=== PATIENT | female | born 1975 | race Hispanic/Latino ===

== ENCOUNTER 2022-07-03 11:36 | Emergency (ER) | payer SELFPAY ==
--- NOTE | 2022-07-03 12:30 | RAD REPORT ---
EXAM DESCRIPTION: CT - C Spine Wo Con - 07/03/2022 12:14 pm CLINICAL HISTORY: nek pain, radicular pain COMPARISON: No comparisons TECHNIQUE: CT Scan was obtained of the cervical spine without contrast. Reformats were provided in t he sagittal and coronal plane. FINDINGS: No acute fracture of the cervical spine. Trace anterolisthesis of C3 on C4 and C4 on C5 li kiesha related to underlying degenerative changes. No prevertebral edema. No significant focal degenera tive changes. No suspicious thyroid nodules or lymphadenopathy. The lung apices are clear. IMPRESSION: No fracture or traumatic malalignment of the cervical spine.
--- NOTE | 2022-07-03 13:02 | RAD REPORT ---
EXAM DESCRIPTION: RAD - Shoulder Left 2 View - 07/03/2022 12:51 pm CLINICAL HISTORY: shoulder pain COMPARISON: No comparisons FINDINGS/IMPRESSION: No acute fracture. No malalignment. No significant focal degenerative changes.
--- NOTE | 2022-07-03 13:38 | EDPHYS ---
Physician Documentation [facility] Name: Jacquelyn Deluca Age: 47 yrs Sex: Female : 1975 Arrival Date: 07/03/2022 Time: 11:45 Bed 11 Private MD: ED Physician Abe Rudolph HPI: 07/03 13:34 This 47 yrs old Female presents to ER via Ambulatory with complaints of Arm jmm Pain. 13:34 The patient or guardian complains of pain. Onset: The symptoms/episode began/occurred jmm acutely, 2 week(s) ago. Modifying factors: The symptoms are alleviated by nothing. the symptoms are aggravated by movement. This is a 47-year-old female with no known chronic medical conditions presents emerged part with complaints of left shoulder pain which initially began approximately 2 weeks ago after lifting heavy luggage. Patient states the pain will radiate from her shoulder all the way down to her hands. Denies any weakness or numbness. Denies chest pain.. Historical: - Allergies: 11:57 No Known Allergies; aa5 - Home Meds: 11:57 None [Active]; aa5 - PMHx: 11:57 None; aa5 - PSHx: 11:57 None; aa5 - Immunization history:: Adult Immunizations unknown. - Social history:: Smoking status: Patient denies any tobacco usage or history of. ROS: 13:34 Constitutional: Negative for fever, chills, and weight loss, Cardiovascular: Negative jmm for chest pain, palpitations, and edema, Respiratory: Negative for shortness of breath, cough, wheezing, and pleuritic chest pain. 13:34 MS/extremity: Positive for pain. 13:34 All other systems are negative. Exam: 13:34 Constitutional: This is a well developed, well nourished patient who is awake, alert, jmm and in no acute distress. Head/Face: atraumatic. Eyes: EOMI, no conjunctival erythema appreciated ENT: Moist Mucus Membranes Neck: Trachea midline, Supple Chest/axilla: Normal chest wall appearance and motion. Cardiovascular: Regular rate and rhythm. 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 13:34 Skin: Appearance: Color: normal in color. 13:34 Neuro: Orientation: is normal, Mentation: is normal, Memory: is normal. 13:34 Psych: Behavior/mood is pleasant, cooperative. Vital Signs: 11:55 BP 152 / 96; Pulse 92; Resp 20 S; Temp 97.1(TE); Pulse Ox 99% on R/A; Weight 108.86 kg aa5 (R); Height 5 ft. 4 in. (162.56 cm) (R); 11:55 Body Mass Index 41.20 (108.86 kg, 162.56 cm) aa5 MDM: 11:56 Patient medically screened. [facility] 13:35 Data reviewed: vital signs, nurses notes. I considered the following discharge [facility] prescriptions or medication management in the emergency department Medications were administered in the Emergency Department. See MAR. Independent interpretation of the following test(s) in the Emergency Department X-Ray: My interpretation is No fracture appreciated. Counseling: I had a detailed discussion with the patient and/or guardian regarding: the historical points, exam findings, and any diagnostic results supporting the discharge/admit diagnosis, radiology results, the need for outpatient follow up, to return to the emergency department if symptoms worsen or persist or if there are any questions or concerns that arise at home. 07/03 11:56 Order name: CT C Spine; Complete Time: 12:36 [facility] 07/03 11:56 Order name: Shoulder Left (2 View) XRAY; Complete Time: 13:13 [facility] Administered Medications: 12:04 Drug: Ketorolac 30 mg Route: IM; Site: right gluteus; aa5 12:58 Follow up: Response: No adverse reaction; Pain is decreased aa5 12:04 Drug: Flexeril (cyclobenzaprine) 10 mg Route: PO; aa5 12:58 Follow up: Response: No adverse reaction; Pain is decreased aa5 Disposition: 17:47 Co-signature as Attending Physician, Abe Rudolph MD I reviewed the patient's care rt provided by the Advanced Practice Provider and agree with the diagnosis and treatment plan. Disposition Summary: 07/03/22 13:37 Discharge Ordered Location: Home [facility] Condition: Stable [facility] Diagnosis - Sprain of shoulder joint [facility] Followup: surya - With: Private Physician - When: 2 - 3 days - Reason: Recheck today's complaints, Continuance of care, Re-evaluation by your physician Followup: surya - With: Cirilo Trotter MD - When: 2 - 3 days - Reason: Recheck today's complaints, Continuance of care, Re-evaluation by your physician Discharge Instructions: - Discharge Summary Sheet [facility] - Shoulder Sprain [facility] Forms: - Medication Reconciliation Form [facility] - Thank You Letter [facility] - Antibiotic Education [facility] - Prescription Opioid Use [facility] Prescriptions: - Prednisone 20 mg Oral Tablet - take 3 tablets by ORAL route once daily for 5 days; 15 tablet; Refills: 0, [facility] Product Selection Permitted - Diclofenac Sodium 75 mg Oral Tablet Sustained Release - take 1 tablet by ORAL route 2 times per day; 30 tablet; Refills: 0, Product [facility] Selection Permitted - orphenadrine citrate 100 mg Oral Tablet Sustained Release - take 1 tablet by ORAL route 2 times per day As needed; 20 tablet; Refills: 0, [facility] Product Selection Permitted Signatures: Dispatcher [employer] Frank Chambers PA PA jmm Calderon, Audri, RN RN aa5 Abe Rudolph MD MD rt
--- NOTE | 2022-07-03 13:38 | ER ---
Nurse's Notes [facility] Name: Jacquelyn Deluca Age: 47 yrs Sex: Female : 1975 Arrival Date: 07/03/2022 Time: 11:45 Bed 11 Private MD: Diagnosis: Sprain of shoulder joint Presentation: 07/03 11:55 Chief complaint: Patient states: "I carried two luggages with my left arm and ever aa5 since then my left arm has been hurting". Left arm pain x 2 weeks, worse to left shoulder. Coronavirus screen: At this time, the client does not indicate any symptoms associated with coronavirus-19. Ebola Screen: Patient denies travel to an Ebola-affected area in the 21 days before illness onset. Initial Sepsis Screen: Does the patient meet any 2 criteria? No. Patient's initial sepsis screen is negative. Does the patient have a suspected source of infection? No. Patient's initial sepsis screen is negative. Risk Assessment: Do you want to hurt yourself or someone else? Patient reports no desire to harm self or others. Onset of symptoms was June 2022. 11:55 Acuity: MYLA 3 aa5 11:55 Method Of Arrival: Ambulatory aa5 Triage Assessment: 11:55 General: Appears uncomfortable, Behavior is calm, cooperative. Pain: Complains of pain aa5 in left arm. Neuro: Denies paresthesias in left arm numbness in left arm. Respiratory: Airway is patent Respiratory effort is even, unlabored, Respiratory pattern is regular, symmetrical. Derm: Skin is pink, warm \\T\\ dry. Historical: - Allergies: 11:57 No Known Allergies; aa5 - Home Meds: 11:57 None [Active]; aa5 - PMHx: 11:57 None; aa5 - PSHx: 11:57 None; aa5 - Immunization history:: Adult Immunizations unknown. - Social history:: Smoking status: Patient denies any tobacco usage or history of. Assessment: 12:58 Reassessment: Patient is alert, oriented x 3, equal unlabored respirations, skin aa5 warm/dry/pink. Patient states feeling better. Patient states symptoms have improved. 13:55 Reassessment: Patient is alert, oriented x 3, equal unlabored respirations, skin aa5 warm/dry/pink. Vital Signs: 11:55 BP 152 / 96; Pulse 92; Resp 20 S; Temp 97.1(TE); Pulse Ox 99% on R/A; Weight 108.86 kg aa5 (R); Height 5 ft. 4 in. (162.56 cm) (R); 11:55 Body Mass Index 41.20 (108.86 kg, 162.56 cm) aa5 ED Course: 11:45 Patient arrived in ED. rg4 11:47 Frank Ta PA is PHCP. jmm 11:47 Abe Rudolph MD is Attending Physician. jmm 11:54 Arm band placed on. aa5 11:57 Triage completed. aa5 12:14 CT C Spine In Process Unspecified. EDMS 12:52 Shoulder Left (2 View) XRAY In Process Unspecified. EDMS 13:36 Cirilo Trotter MD is Referral Physician. m 13:55 No provider procedures requiring assistance completed. Patient did not have IV access aa5 during this emergency room visit. Administered Medications: 12:04 Drug: Ketorolac 30 mg Route: IM; Site: right gluteus; aa5 12:58 Follow up: Response: No adverse reaction; Pain is decreased aa5 12:04 Drug: Flexeril (cyclobenzaprine) 10 mg Route: PO; aa5 12:58 Follow up: Response: No adverse reaction; Pain is decreased aa5 Medication: 13:55 VIS not applicable for this client. aa5 Outcome: 13:37 Discharge ordered by . [facility] 13:55 Discharged to home ambulatory. aa5 13:55 Condition: improved 13:55 Discharge instructions given to patient, Instructed on discharge instructions, follow up and referral plans. medication usage, Demonstrated understanding of instructions, follow-up care, medications, Prescriptions given X 3. 13:57 Patient left the ED. aa5 Signatures: Dispatcher [employer] EDMS Frank Ta PA PA jmm Calderon, Audri, ELIZABETH RN aa5 Vianey Sue rg4
[2022-07-03 14:25] VITALS: BP 152/96; TEMP 97.1; O2SAT 99
== END 2022-07-03 13:57 | disposition home or self-care (01) ==
LOC: ER 11:36
DX: S43.402A Unspecified sprain of left shoulder joint, initial encounter (principal)
CPT/HCPCS: 72125; 96372; 99283

== ENCOUNTER 2023-03-09 18:59 | Emergency (ER) | payer SELFPAY ==
[2023-03-09 20:25] LABS: Specific Gravity 1.029 (1.005-1.030)
[2023-03-09 20:29] LABS: Specific Gravity 1.029 (1.005-1.030); Urine Bacteria <20 /HPF (<20); Urine Bilirubin NEGATIVE (Negative); Urine Blood Negative (Negative); Urine Clarity Extremely Turbid (Clear); Urine Color Light-Yellow (Yellow); Urine Crystals Unidentified Few /HPF (None Seen); Urine Glucose NEGATIVE (Negative); Urine Mucus Slight /HPF (None Seen); Urine Protein TRACE (Negative); Urine RBC <5 /HPF (None Seen); Urine Urobilinogen Normal (Normal); Urine pH 5.5 (5.0-7.0)
--- NOTE | 2023-03-09 21:01 | RAD REPORT ---
EXAM DESCRIPTION: William Single View03/09/2023 8:12 pm CLINICAL HISTORY: upper abdomen pain COMPARISON: No comparisons TECHNIQUE: Portable AP view of the chest. FINDINGS: The lungs are clear. No pneumothorax or effusion. The cardiomediastinal contours are unre markable. IMPRESSION: No acute cardiopulmonary process.
[2023-03-09 21:18] LABS: Absolute Lymphocytes (CBC) 3.4 K/uL (0.7-4.9); Hematocrit 42.2 % (36.0-45.0); Lymphocytes % 35.7 % (15.3-44.8); MCV 90.6 fL (80-100); MPV 7.5 fL (7.6-11.3); Platelets 377 thou/uL (152-406); RBC Red Blood Cell Count 4.66 M/uL (3.86-4.86)
--- NOTE | 2023-03-09 21:24 | RAD REPORT ---
EXAM DESCRIPTION: US - Abdomen Exam Limited - 03/09/2023 7:57 pm CLINICAL HISTORY: ABD PAIN COMPARISON: No comparisons TECHNIQUE: Sonographic grayscale and color flow images of the right upper abdominal quadrant were obtained. FINDINGS: The gallbladder demonstrates no gallstones. Partially contracted gallbladder somewhat limi ts evaluation. No pericholecystic fluid or gallbladder wall thickening. The common bile duct is raffaele l measuring 2 mm. The liver demonstrates no findings of intrahepatic biliary dilatation. IMPRESSION: Gallbladder is partially contracted limiting evaluation, without acute finding.
[2023-03-09 21:26] LABS: Albumin 3.3 g/dL (3.4-5.0); Bilirubin Total 0.5 mg/dL (0.2-1.0); Potassium 3.7 mEq/L (3.5-5.1); Protein, Total 7.6 g/dL (6.4-8.2)
[2023-03-09] MEDS ORDERED: NA CHLORIDE 0.9% 1,000 ML ONE (23:11)
[2023-03-09] MEDS ORDERED: KETOROLAC 30 MG/ML INJ ONE (23:11)
--- NOTE | 2023-03-10 01:39 | ER ---
Nurse's Notes [facility] Name: Jacquelyn Deluca Age: 47 yrs Sex: Female : 1975 Arrival Date: 03/09/2023 Time: 18:59 Bed 11 Private MD: Diagnosis: Abdominal pain, unspecified Presentation: 03/09 19:09 Chief complaint: Patient states: she has been having right sided pain since yesterday. ap3 patient states her pain is a 7/10 on the pain scale. patient is also having "different" poops, which are softer and slightly more dark than normal. Coronavirus screen: At this time, the client does not indicate any symptoms associated with coronavirus-19. Ebola Screen: No symptoms or risks identified at this time. Initial Sepsis Screen: Does the patient meet any 2 criteria? No. Patient's initial sepsis screen is negative. Does the patient have a suspected source of infection? Yes: Acute abdominal pain. Risk Assessment: Do you want to hurt yourself or someone else? Patient reports no desire to harm self or others. Onset of symptoms was March 08, 2023. 19:09 Method Of Arrival: Ambulatory ap3 19:09 Acuity: MYLA 3 ap3 Triage Assessment: 19:11 General: Appears uncomfortable, Behavior is calm, cooperative, appropriate for age. ap3 Pain: Complains of pain in anterior aspect of right lateral abdomen Pain currently is 7 out of 10 on a pain scale. at worst was 10 out of 10 on a pain scale. Neuro: Level of Consciousness is awake, alert, obeys commands, Oriented to person, place, time, situation. Cardiovascular: Patient's skin is warm and dry. Respiratory: Airway is patent Respiratory effort is even, unlabored, Respiratory pattern is regular, symmetrical. GI: Reports lower abdominal pain, upper abdominal pain. PALLETIZER: 23:17 Not cm10 Historical: - Allergies: 19:11 No Known Allergies; ap3 - Home Meds: 19:11 None [Active]; ap3 - PMHx: 19:11 None; ap3 - Immunization history:: Client reports having NOT received the Covid vaccine. - Social history:: Smoking status: Patient denies any tobacco usage or history of. Screenin:12 [facility] ED Fall Risk Assessment (Adult) History of falling in the last 3 months, ap3 including since admission No falls in past 3 months (0 pts). Abuse screen: Denies threats or abuse. Nutritional screening: No deficits noted. Tuberculosis screening: No symptoms or risk factors identified. Assessment: 20:23 General: Appears in no apparent distress. comfortable, Behavior is calm, cooperative. cm10 Pain: Complains of pain in abdomen and anterior aspect of right lateral abdomen. Neuro: No deficits noted. Cody Agitation-Sedation Scale (RASS): 0 - Alert and Calm Level of Consciousness is awake, alert, obeys commands, Oriented to person, place, time, situation. Cardiovascular: No deficits noted. Patient's skin is warm and dry. Respiratory: No deficits noted. Airway is patent Respiratory effort is even, unlabored, Respiratory pattern is regular, symmetrical. GI: Abdomen is obese. : No deficits noted. No signs and/or symptoms were reported regarding the genitourinary system. EENT: No deficits noted. No signs and/or symptoms were reported regarding the EENT system. Derm: No deficits noted. No signs and/or symptoms reported regarding the dermatologic system. Skin is intact, Skin is pink, warm \\T\\ dry. 21:25 Reassessment: Patient appears in no apparent distress at this time. Patient and/or cm10 family updated on plan of care and expected duration. Pain level reassessed. Patient is alert, oriented x 3, equal unlabored respirations, skin warm/dry/pink. 23:18 Reassessment: Patient appears in no apparent distress at this time. Patient and/or cm10 family updated on plan of care and expected duration. Pain level reassessed. Patient is alert, oriented x 3, equal unlabored respirations, skin warm/dry/pink. Vital Signs: 19:09 BP 142 / 101; Pulse 76; Resp 18; Temp 97.5; Pulse Ox 100% ; Weight 108.86 kg; Pain 7/10;ap3 23:17 BP 148 / 87; Pulse 69; Resp 18 S; Pulse Ox 99% on R/A; cm10 03/10 01:51 BP 128 / 87; Pulse 66; Resp 16; Pulse Ox 100% on R/A; cm10 03/09 19:09 Pain Scale: Adult ap3 ED Course: 03/09 19:04 Patient arrived in ED. kj1 19:11 Triage completed. ap3 19:12 Arm band placed on left wrist. ap3 19:14 Osmin Whelan PA is PHCP. cp 19:14 Víctor Rosales DO is Attending Physician. cp 19:58 Kerri Yoo, ELIZABETH is Primary Nurse. cm10 19:59 US Abdomen Limited: gallbladder In Process Unspecified. EDMS 20:13 XRAY Chest (1 view) In Process Unspecified. EDMS 20:19 Initial lab(s) drawn, by me, sent to lab. Urine collected: clean catch specimen, cm10 cloudy. Missed attempt(s): 20 gauge in right antecubital area. Bleeding controlled, band aid applied, catheter tip intact. 20:20 CBC with Diff Sent. cm10 20:20 CMP Sent. cm10 20:20 Lipase Sent. cm10 20:20 Test, Urine Sent. cm10 20:20 Urinalysis w/ reflexes Sent. cm10 20:55 Missed attempt(s): 20 gauge in left antecubital area. Bleeding controlled, band aid cm10 applied, catheter tip intact. 21:03 Lab(s) recollected, by me, sent to lab. Inserted saline lock: 22 gauge in left forearm, cm10 using aseptic technique. Blood collected. 23:[address] via wheelchair. cm10 23:18 Patient has correct armband on for positive identification. Bed in low position. Call cm10 light in reach. Provided Education on: ER process and procedures. . 23:34 CT Abd/Pelvis - IV Contrast Only In Process Unspecified. EDMS 03/10 01:51 No provider procedures requiring assistance completed. IV discontinued, intact, cm10 bleeding controlled, No redness/swelling at site. Pressure dressing applied. Administered Medications: 03/09 23:19 Drug: Ketorolac IVP 15 mg IVP once Route: IVP; Site: left forearm; cm10 23:19 Drug: NS 0.9% IV 1000 ml IV at 1 bolus Per protocol; 1000 mL bolus Route: IV; Rate: 1 cm10 bolus; Site: left forearm; Medication: 20:24 VIS not applicable for this client. cm10 Outcome: 03/10 01:38 Discharge ordered by MD. cp 01:52 Discharged to home ambulatory, with family, cm10 01:52 Condition: good 01:52 Discharge instructions given to patient, Instructed on discharge instructions, follow up and referral plans. medication usage, Demonstrated understanding of instructions, follow-up care, medications, Prescriptions given X 2, 01:52 Patient left the ED. cm10 Signatures: Dispatcher [employer] EDMS Osmin Whelan PA PA cp Prokisch, Amanda RN RN ap3 Holli Elkins Clarissa, RN RN cm10
--- NOTE | 2023-03-10 01:39 | EDPHYS ---
Physician Documentation [facility] Name: Jacquelyn Deluca Age: 47 yrs Sex: Female : 1975 Arrival Date: 03/09/2023 Time: 18:59 Bed 11 Private MD: ED Physician Víctor Rosales HPI: 03/09 19:30 This 47 yrs old Female presents to ER via Ambulatory with complaints of cp Abdominal Pain. 19:30 The patient presents with abdominal pain in the right upper quadrant, right lower cp quadrant. Onset: The symptoms/episode began/occurred yesterday. 19:30 Associated signs and symptoms: Pertinent negatives: blood in stools, chest pain, cp constipation, diarrhea, dysuria, fever, vomiting. 19:30 The symptoms are described as constant. cp 19:30 The symptoms do not radiate. cp [employer]: 23:17 Not cm10 Historical: - Allergies: 19:11 No Known Allergies; ap3 - Home Meds: 19:11 None [Active]; ap3 - PMHx: 19:11 None; ap3 - Immunization history:: Client reports having NOT received the Covid vaccine. - Social history:: Smoking status: Patient denies any tobacco usage or history of. ROS: 19:35 Constitutional: Negative for body aches, chills, fever, poor PO intake, cp 19:35 Eyes: Negative for injury, pain, redness, and discharge, cp 19:35 ENT: Negative for drainage from ear(s), ear pain, sore throat, difficulty swallowing, difficulty handling secretions, 19:35 Cardiovascular: Negative for chest pain, edema, palpitations, 19:35 Respiratory: Negative for cough, shortness of breath, wheezing, 19:35 Abdomen/GI: Positive for abdominal pain, of the right upper quadrant and right lower quadrant, Negative for vomiting, diarrhea, constipation, anorexia, 19:35 : Negative for urinary symptoms, 19:35 Neuro: Negative for altered mental status, dizziness, headache, syncope, weakness, 19:35 All other systems are negative, Exam: 19:40 Constitutional: The patient appears in no acute distress, alert, awake, cp non-diaphoretic, non-toxic, well developed, well nourished, obese, uncomfortable, 19:40 Head/Face: Normocephalic, atraumatic. cp 19:40 Eyes: Periorbital structures: appear normal, Conjunctiva: normal, no exudate, no injection, Sclera: no appreciated abnormality, Lids and lashes: appear normal, bilaterally, 19:40 ENT: External ear(s): are unremarkable, Nose: is normal, Mouth: Lips: moist, Oral mucosa: pink and intact, moist, Posterior pharynx: is normal, airway is patent, no erythema, no exudate, 19:40 Chest/axilla: Inspection: normal, 19:40 Cardiovascular: Rate: normal, Rhythm: regular, Edema: is not appreciated, JVD: is not appreciated, 19:40 Respiratory: the patient does not display signs of respiratory distress, Respirations: normal, no use of accessory muscles, no retractions, labored breathing, is not present, Breath sounds: are clear throughout, no decreased breath sounds, no stridor, no wheezing, 19:40 Abdomen/GI: Inspection: obese Bowel sounds: active, all quadrants, Palpation: soft, in all quadrants, moderate abdominal tenderness, in the right upper quadrant and right lower quadrant, rebound tenderness, is not appreciated, involuntary guarding, is not appreciated, 19:40 Back: ROM is normal, CVA tenderness, is absent, 19:40 Neuro: Orientation: to person, place \T\ time. Mentation: is normal, Motor: moves all fours, strength is normal, Gait: is steady, at a normal pace, without difficulty, Vital Signs: 19:09 BP 142 / 101; Pulse 76; Resp 18; Temp 97.5; Pulse Ox 100% ; Weight 108.86 kg; Pain 7/10;ap3 23:17 BP 148 / 87; Pulse 69; Resp 18 S; Pulse Ox 99% on R/A; cm10 18 01:51 BP 128 / 87; Pulse 66; Resp 16; Pulse Ox 100% on R/A; cm10 03/09 19:09 Pain Scale: Adult ap3 MDM: 03/09 19:15 Patient medically screened. cp 21:00 Differential diagnosis: appendicitis, cholecystitis, Cholelithiasis, diverticulitis, cp gastritis, non-specific abd pain, pancreatitis. 03/10 01:38 Data reviewed: vital signs, nurses notes, lab test result(s), radiologic studies, CT cp scan, plain films, ultrasound. 01:38 I considered the following discharge prescriptions or medication management in the emergency department Medications were administered in the Emergency Department. See MAR. Counseling: I had a detailed discussion with the patient and/or guardian regarding the historical points, exam findings, and any diagnostic results supporting the discharge/admit diagnosis, lab results, radiology results, to return to the emergency department if symptoms worsen or persist or if there are any questions or concerns that arise at home. Response to treatment: the patient's symptoms have markedly improved after treatment, and as a result, I will discharge patient. Special discussion: Based on the patient's Hx, exam, and Dx evaluation, there is no indication for emergent surgery or inpatient Tx. It is understood by the patient/guardian that if the Sx's persist or worsen they need to return immediately for re-evaluation. 03/09 19:26 Order name: CBC with Diff; Complete Time: 22:43 03/09 22:44 Interpretation: Normal except: MPV 7.5. 03/09 19:26 Order name: CMP; Complete Time: 22:43 03/09 22:44 Interpretation: Normal except: GLUC 124; BUN 20; GFR 87; ALB 3.3; GLOB 4.3; A/G 0.8. 03/09 19:26 Order name: Lipase; Complete Time: 22:43 03/09 19:26 Order name: Test, Urine; Complete Time: 22:43 03/09 19:26 Order name: Urinalysis w/ reflexes; Complete Time: 22:43 03/09 20:32 Order name: Urine Culture EDOH 03/09 19:31 Order name: US Abdomen Limited: gallbladder; Complete Time: 22:43 03/09 19:31 Order name: XRAY Chest (1 view); Complete Time: 22:43 03/09 22:45 Order name: CT Abd/Pelvis - IV Contrast Only 03/09 19:26 Order name: IV Saline Lock; Complete Time: 20:20 03/09 19:26 Order name: Labs collected and sent; Complete Time: 20:20 03/09 20:35 Order name: [facility] [place]. Order: RECOLLECT ALL LABS; Complete Time: 21:02 rv1 Administered Medications: 03/09 23:19 Drug: Ketorolac IVP 15 mg IVP once Route: IVP; Site: left forearm; cm10 23:19 Drug: NS 0.9% IV 1000 ml IV at 1 bolus Per protocol; 1000 mL bolus Route: IV; Rate: 1 cm10 bolus; Site: left forearm; Disposition: 21:54 I was immediately available on-site in the Emergency Department for consultation in the ms3 care of the patient. Disposition Summary: 03/10/23 01:38 Discharge Ordered Notes: Location: Home cp Problem: new cp Symptoms: have improved cp Condition: Stable cp Diagnosis - Abdominal pain, unspecified cp Followup: cp - With: Private Physician - When: 2 - 3 days - Reason: pain continues Discharge Instructions: - Discharge Summary Sheet cp - Abdominal Pain, Adult cp Forms: - Medication Reconciliation Form cp - Thank You Letter cp - Antibiotic Education cp - Prescription Opioid Use cp - Patient Portal Instructions cp - Leadership Thank You Letter cp Prescriptions: - Ibuprofen 800 mg Oral Tablet - take 1 tablet ORAL route every 8 hours As needed take with food; 30 tablet; cp Refills: 0, Product Selection Permitted - Zofran 4 mg Oral Tablet - take 1 tablet ORAL route every 12 hours As needed; 20 tablet; Refills: 0, cp Product Selection Permitted Signatures: Dispatcher [employer] EDMS Osmin Whelan PA PA cp Prokisch, Amanda, RN RN ap3 Víctor Rosales DO DO mt3 Gloria Capellan 1 Kerri Yoo, RN RN cm10
[2023-03-10 04:25] VITALS: TEMP 97.5
[2023-03-10 04:36] VITALS: BP 128/87; O2SAT 100
--- NOTE | 2023-03-10 14:48 | RAD REPORT ---
EXAM DESCRIPTION: CT Abdomen and Pelvis With Intravenous Contrast CLINICAL HISTORY: The patient is 47 years old and is Female; right side abdomen pain TECHNIQUE: Axial computed tomography images of the abdomen and pelvis with intravenous contrast. S agittal and coronal reformatted images were created and reviewed. This CT exam was performed using one or more of the following dose reduction techniques: automated exposure control, adjustment of t he mA and/or kV according to patient size, and/or use of iterative reconstruction technique. COMPARISON: No relevant prior studies available. FINDINGS: LUNG BASES: Unremarkable. No mass. No consolidation. ABDOMEN: LIVER: The liver is enlarged and diffusely fatty. GALLBLADDER AND BILE DUCTS: Gallbladder is contracted. PANCREAS: No ductal dilation. No mass. SPLEEN: Unremarkable. ADRENALS: Unremarkable. No mass. KIDNEYS AND URETERS: Unremarkable. The kidneys enhance symmetrically. No obstructing renal or ure teral calculus is seen. No hydronephrosis or hydroureter. No perinephric fluid or stranding. STOMACH AND BOWEL: The stomach is well distended with food contents. The small bowel is normal in caliber. Stool is present throughout colon. There is no mucosal thickening or evidence of obstructio n. PELVIS: APPENDIX: The appendix is normal in caliber without surrounding inflammation. BLADDER: The bladder is nearly empty. REPRODUCTIVE: A large slightly exophytic uterine fibroid is present with multiple calcifications. The uterus and ovaries are otherwise unremarkable. ABDOMEN and PELVIS: INTRAPERITONEAL SPACE: Unremarkable. No free air. No significant fluid collection. BONES/JOINTS: No acute fracture. SOFT TISSUES: A small fat-containing umbilical hernia is present. VASCULATURE: Unremarkable. No abdominal aortic aneurysm. LYMPH NODES: Unremarkable. No enlarged lymph nodes. IMPRESSION: 1. No acute findings on this contrasted CT of the abdomen and pelvis to explain the pa tient's symptoms. 2. Chronic findings as above. Electronically signed by: Katty Edwards MD 03/10/2023 1:26 AM CDT Due to temporary technical issues with the PACS/Fluency reporting system, reports are being signed by the in house radiologists without review as a courtesy to insure prompt reporting. The interpreting radiologist is fully responsible for the content of the report.
== END 2023-03-10 01:52 | disposition home or self-care (01) ==
LOC: ER 18:59
DX: R10.11 Right upper quadrant pain (principal)
CPT/HCPCS: 36415; 71045; 74177; 76705; 80053; 81001; 81025; 83690; 85025; 87086; 87088; J7030; Q9967

== ENCOUNTER → 2023-08-05 | Emergency (ER) | payer SELFPAY ==
[~2023-08-05] MED LIST: DIAZEPAM 5 MG TABLET ONE
--- OUTSIDE RECORDS SUMMARY | 2023-08-05 02:09 | XMS REPORT | Continuity of Care Document ---
Author Name Unknown Address [address] [place] [address] [facility] thconnect Address [address] [place] [address] Care Team Providers Care Jig Maker Name Role Phone KRISTAL HERNANDEZ Primary Care Physician UnavailKentrell Anderson DO Attending Clinician Leonard Villar MD Attending Clinician [phone] Doctor Unassigned, Gene Autry Attending Clinician U EDWIN Herman Attending Clinician Unavailable Delta Rick Attending Clinician [phone] DELTA CORTEZ Attending Clinician Unavailable LEONARD VILLAR Attending Clinician Unavailable KRISTAL HERNANDEZ Attending Clinician Unavailable DELTA CORTEZ Admitting Clinician Unavailable LEONARD VILLAR Admitting Clinician Unavailable KRISTAL HERNANDEZ Admitting Clinician Unavailable Payers Payer Name Policy Type Policy Number Effective Date Expirati on Date Source [facility] [id number] 2018 00:00:00 Problems Condition Name Condition Details Condition Category Status Onset Date Resolution Date Last Treatment Date Treating Clinician Comments Source Diarrhea, unspecifie d type Diarrhea, unspecifie d type Disease Active 05-29 00:00: 00 [facility] acute hospital Postherpet ic myelitis Postherpet ic myelitis Disease Active 05-26 00:00: 00 [facility] acute hospital 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 athy Disease Active 05-26 00:00: 00 [facility] acute hospital Acute right-side d thoracic back pain Acute right-side d thoracic back pain Disease Active 2018-05 00:00: 00 General acute hospital Musculoske letal chest pain Musculoske letal chest pain Disease Active 2018-05 00:00: 00 [facility] acute hospital Morbid obesity with body mass index of 40.0-49.9 Morbid obesity with body mass index of 40.0-49.9 Disease Active 10-25 00:00: 00 [facility] acute hospital [id number] Arthritis of knee, right Problem Active [facility] [id number] Arthritis of knee, left Problem Active [facility] Allergies, Adverse Reactions, Alerts Allergy Name Allergy Type Status Severity Reaction(s) Onset Date Inactive Date Treating Clinician Comments Source NO KNOWN ALLERGIE S Drug Class Active [facility] acute hospital Social History Social Habit Start Date Stop Date Quantity Comments Source History of Tobacco Use [facility] Sex Assigned At [facility] Exposure to SARS-CoV-2 (event) Not sure [facility] Tobacco use and exposure 2019-05-29 00:00:00 2019-05-29 00:00:00 Never used [facility] Cigarettes smoked current (pack per day) - Reported 2019-05-29 00:00:00 2019-05-29 00:00:00 [facility] Alcohol intake 2019-05-29 00:00:00 2019-05-29 00:00:00 Current drinker of alcohol (finding) [facility] Alcohol Comment 2018-10-25 00:00:00 2018-10-25 00:00:00 Occasional [facility] Smoking Status Start Date Stop Date Source Never Smoker [facility] Former smoker 2019-05-29 00:00:00 2019-05-29 00:00:00 [facility] Medications Ordered Medication Name Filled Medication Name Start Date Stop Date Current Medication? Ordering Clinician Indication Dosage Frequency Signature (SIG) Comments Components Source Mobic 7.5 MG Mobic 7.5 MG 12-03 00:00: 00 01-02 00:00 :00 No 1{table t} QD Mobic 7.5 MG [facility] meclizine (TRAVEL-EAS E (MECLIZINE) ) tablet 25 mg 2019-05 10:00: 00 04-03 09:16 :00 No 25mg 25 mg, Oral, ONCE, 1 dose, Wed04/03/20 at 0400, [facility] acute hospital ondansetron (ZOFRAN (PF)) injection 4 mg 2019-05 09:45: 00 04-03 08:43 :00 No 4mg 4 mg, Slow IV Push, ONCE, 1 dose, Wed04/03/20 at 0345, [facility] acute hospital NaCl 0.9% (NS) bolus infusion 1,000 mL 2019-05 09:45: 00 04-03 10:43 :00 No 1000mL at 999 mL/hr, 1,000 mL, IV Infusion, ONCE, 1 dose, Wed04/03/20 at 0345, STAT [facility] acute hospital meclizine 25 mg tablet 2019-05 00:00: 00 Yes [id number] 25mg Take 1 tablet by mouth every 6 (six) hours. [facility] acute hospital cephALEXin 500 mg capsule 2019-05 00:00: 00 Yes [id number] 500mg Take 1 capsule by mouth 3 (three) times daily. [facility] acute hospital meclizine 25 mg tablet 2019-05 00:00: 00 Yes [id number] 25mg Take 1 tablet by mouth every 6 (six) hours. [facility] acute hospital cephALEXin 500 mg capsule 2019-05 00:00: 00 Yes [id number] 500mg Take 1 capsule by mouth 3 (three) times daily. [facility] acute hospital calamine lotion 05-26 00:00: 09-14 00:00 :00 No [id number] Apply to area(s) 3 (three) times daily. Apply to affected areas on right chest wall TID [facility] acute hospital Hydrocortis one-Oatmeal -Aloe-E (AVEENO ANTI-ITCH, HYDROCORTSN ,) 1 % Crea 05-26 00:00: 09-14 00:00 :00 No [id number] Apply to area(s) 4 (four) times daily as needed for Itching. [facility] acute hospital ketorolac 10 mg tablet 2018-05 00:00: 09-14 00:00 :00 No [id number] 10mg Take 1 tablet by mouth every 8 (eight) hours. [facility] acute hospital benzonatate 100 mg capsule 2018-05 00:00: 09-14 00:00 :00 No [id number] 100mg Take 1 capsule by mouth 3 (three) times daily as needed for Cough. [facility] acute hospital ondansetron 4 mg disintegrat ing tablet 2018-05 00:00: 09-14 00:00 :00 No [id number] 4mg Take 1 tablet by mouth every 4 (four) hours as needed for Nausea and Vomiting (N/V). [facility] acute hospital Nitrofurant oin&Nit. Macrocryst (MACROBID) 100 mg capsule 2018-05 00:00: 09-14 00:00 :00 No [id number] 100mg Take 1 capsule by mouth 2 (two) times daily. [facility] acute hospital ibuprofen 800 mg tablet 2018-05 00:00: 09-14 00:00 :00 No [id number] 800mg Take 1 tablet by mouth every 6 (six) hours as needed for Pain (scale 4-6). [facility] acute hospital tiZANidine 2 mg tablet 2018-05 00:00: 09-14 00:00 :00 No [id number] 2mg Take 1 tablet by mouth every 6 (six) hours as needed (Spams). [facility] acute hospital hydrocodone -acetaminop hen (NORCO 5) 5-325 mg tablet 07-24 00:00: 00 09-14 00:00 :00 No 1{tbl} Take 1 Tab by mouth every 4 (four) hours as needed for Pain. [facility] acute hospital cyclobenzap rine (FLEXERIL) 5 mg tablet 07-24 00:00: 00 09-14 00:00 :00 No 5mg Take 1 Tab by mouth 3 (three) times daily. General acute hospital Zinc Zinc No Zinc [facility] Magnesium Magnesium No Magnesium [facility] Calcium Calcium No Calcium C ommon [facility] No known medications No Un jarrell [facility] Vital Signs Vital Name Observation Time Observation Value Comments S ource height 2020-12-03 13:30:00 64 [in_i] Commo n [facility] weight 2020-12-03 13:30:00 239.4 [lb_av] Co mmon [facility] temperature 2020-12-03 13:30:00 97.3 [degF] Com mon [facility] bmi 2020-12-03 13:30:00 41.09 kg/m2 Comm on [facility] blood pressure systolic 2020-12-03 13:30:00 118 mm[Hg] [facility] blood pressure diastolic 2020-12-03 13:30:00 82 mm[Hg] [facility] Systolic blood pressure 2020-04-03 10:00:00 139 mm[Hg] [facility] Diastolic blood pressure 2020-04-03 10:00:00 89 mm[Hg] [facility] Heart rate 2020-04-03 10:00:00 64 /min Jesus [facility] Respiratory rate 2020-04-03 10:00:00 17 /min [facility] Oxygen saturation in Arterial blood by Pulse oximetry 2020-04-03 10:00:00 99 /min [facility] Body temperature 2020-04-03 08:34:00 36.5 Sammie [facility] Body height 2020-04-03 08:34:00 162.6 cm [facility] Body weight 2020-04-03 08:34:00 102.059 kg [facility] BMI 2020-04-03 08:34:00 38.62 kg/m2 [facility] Systolic blood pressure 2020-04-03 10:00:00 139 mm[Hg] [facility] Diastolic blood pressure 2020-04-03 10:00:00 89 mm[Hg] [facility] Heart rate 2020-04-03 10:00:00 64 /min Unive [facility] Respiratory rate 2020-04-03 10:00:00 17 /min [facility] Oxygen saturation in Arterial blood by Pulse oximetry 2020-04-03 10:00:00 99 /min [facility] Body temperature 2020-04-03 08:34:00 36.5 Sammie [facility] Body height 2020-04-03 08:34:00 162.6 cm [facility] Body weight 2020-04-03 08:34:00 102.059 kg [facility] BMI 2020-04-03 08:34:00 38.62 kg/m2 [facility] Systolic blood pressure 2019-09-15 08:00:00 136 mm[Hg] [facility] Diastolic blood pressure 2019-09-15 08:00:00 93 mm[Hg] [facility] Heart rate 2019-09-15 08:00:00 63 /min [facility] saturation in Arterial blood by Pulse oximetry 2019-09-15 08:00:00 100 /min [facility] Respiratory rate 2019-09-15 07:00:00 12 /min [facility] Body temperature 2019-09-15 06:50:00 36.89 Sammie [facility] Body height 2019-09-15 06:50:00 162.6 cm [facility] Body weight 2019-09-15 06:50:00 105.235 kg [facility] BMI 2019-09-15 06:50:00 39.82 kg/m2 [facility] Systolic blood pressure 2019-09-15 08:00:00 136 mm[Hg] [facility] Diastolic blood pressure 2019-09-15 08:00:00 93 mm[Hg] [facility] Heart rate 2019-09-15 08:00:00 63 /min [facility] Oxygen saturation in Arterial blood by Pulse oximetry 2019-09-15 08:00:00 100 /min [facility] Respiratory rate 2019-09-15 07:00:00 12 /min [facility] Body temperature 2019-09-15 06:50:00 36.89 Sammie [facility] Body height 2019-09-15 06:50:00 162.6 cm [facility] Body weight 2019-09-15 06:50:00 105.235 kg [facility] BMI 2019-09-15 06:50:00 39.82 kg/m2 [facility] Procedures Procedure Date / Time Performed Performing Clinician Source POCT TEST 2020-04-03 09:53:00 Lilibeth Villar [facility] URINALYSIS 2020-04-03 09:32:00 Leonard Villar [facility] ADC / LCC - DRUG SCREEN TRIAGE 2020-04-03 09:32:00 Leonard Villar [facility] CT HEAD WO CONTRAST 2020-04-03 09:26:41 Lilibeth Villar [facility] MAGNESIUM 2020-04-03 08:36:00 [facility] TROPONIN I 2020-04-03 08:36:00 [facility] HEPATIC FUNCTION PANEL (08637) (ALB,T.PRO,BILI T,BU/BC,ALT,AST,ALK PHOS) 2020-04-03 08:36:00 Leonard Villar [facility] BASIC METABOLIC PANEL (NA, K, CL, CO2, GLUCOSE, BUN, CREATININE, CA) 2020-04-03 08:36:00 Leonard Villar [facility] ETHANOL 2020-04-03 08:36:00 Leonard Villar [facility] CBC WITH DIFF 2020-04-03 08:36:00 Leonard Villar [facility] PROTHROMBIN TIME / INR 2020-04-03 08:36:00 Liang Villar [facility] ACTIVATED PARTIAL THRMPLAS SHEYLA 2020-04-03 08:36:00 Leonard Villar [facility] N-TERMINAL PRO-BNP 2020-04-03 08:36:00 Leonard Villar [facility] CONSENT/REFUSAL FOR DIAGNOSIS AND TREATMENT 2020-04-03 08:19:53 Doctor Unassigned, Gene Autry [facility] XR CHEST 1 VW 2019-09-15 07:28:38 Delta Cortez [facility] CORONAVIRUS COVID-19 TESTING 2019-09-15 07:25:00 Delta Cortez [facility] Encounters Start Date/Time End Date/Time Encounter Type Admission Type Attending [facility] Facility Care Department Encounter ID Source 2021-06-18 13:25:24 Outpatient STLMLC STLMLC [id number] [facility] 2021-03-22 04:37:33 Emergency [facility] [id number] General acute hospital 2020-12-03 00:00:00 2020-12-03 00:00:00 OFFICE VISIT NEW PT LEVEL 4 STLMLC STLMLC [id number] [facility] 2020-08-08 00:00:00 2020-08-08 00:00:00 Patient Outreach Kentrell Flanagan [facility] 1.0.114 350.1.13.10 [id number] [id number] General acute hospital 2020-04-03 02:23:00 2020-04-03 04:51:00 Emergency Leonard Villar [facility] [id number] 4.2.7.2.686 [id number] General acute hospital 2020-04-03 02:23:00 2020-04-03 04:51:00 Emergency Leonard Villar [facility] [id number] 4.2.7.2.686 [id number] 2020-04-03 00:00:00 2020-04-03 00:00:00 Orders Only Doctor Unassigned, Gene Autry [facility] [id number] 350.1.13.10 4.2.7.2.686 [id number] General acute hospital 2020-04-03 00:00:00 2020-04-03 00:00:00 Orders Only Doctor Unassigned, Gene Autry [facility] [id number] 350.1.13.10 4.2.7.2.686 [id number] 2020-02-12 00:00:00 2020-02-12 00:00:00 Outpatient [facility] PDPFESCLOC [id number] [facility] 2019-10-26 10:30:00 2019-10-26 10:30:00 Outpatient EDWIN MENENDEZ [facility] [id number] General acute hospital 2019-09-15 01:55:51 2019-09-15 03:24:00 Emergency Cortez Delta Jackson [facility] [id number] 4.2.7.2.686 [id number] General acute hospital 2019-09-15 01:55:51 2019-09-15 03:24:00 Emergency X DELTA CORTEZ [facility] ERT [id number] General acute hospital 2019-09-15 01:55:51 2019-09-15 03:24:00 Emergency CortezReedshayne Jackson [facility] [id number] 4.2.7.2.686 [id number] 2019-05-19 08:52:13 2019-05-19 12:53:00 Emergency X LEONARD VILLAR [facility] ERT [id number] General acute hospital 2019-05-15 13:09:20 2019-05-15 23:59:00 Outpatient KRISTAL MONTOYA [facility] [id number] General acute hospital Results Test Description Test Time Test Comments Results Result Co mments Source [facility] [id number] 09:58:00* Test Item Value Reference Range Interpretation Comme nts BENZO U (test code = 5548086181) Negative Negative EARLE U (test code = 3703382126) Negative Negative AMPHET (test code = 6291528362) Negative Negative THC (test code = 3389676326) Negative Negative METHADONE (test code = 9386882524) Negative Negative Meth U (test code = 5004706613) Negative Negative OPIATES (test code = 5689293854) Negative Negative Cocaine Metabolite (test code = 6929752817) Negative Negative PROPOXY (test code = 4115907947) Negative Negative Tric U (test code = 8766522000) Negative Negative PCP (test code = 2855331622) Negative Negative OXYCOD (test code = 8006507887) Negative Negative MERLINE (test code = MERLINE) Urine Drug Cutoff Ranges Benzodiazepines: ? ? 150 ng/mLBarbiturates: ?200 ng/mLAmphetamine: ? 500 ng/mLCannabinoids: ?50 ?ng/mLMethadone: ? 200 ng/mLMethamphetamine: ? ? 500 ng/mL Opiates: ? 100 ng/mL or 2000 ng/mLCocaine: ? 150 ng/mLPropoxyphene: ?300 ng/mLTricyclics: ?300 ng/mLOxycodone: ? 100 ng/mLPCP: ? 25 ?ng/mL The results are to be used only for medical (i.e., treatment) purposes. Unconfirmed screening results must not be used for non-medical purposes (e.g., employment testing, legal testing). Lab Interpretation (test code = 51298-8) Normal [facility] CenteraPTT2020-11-11 09:53:00* Test Item Value Reference Range Interpretation Comme nts APTT Patient (test code = 3173-2) See_Comment [Automated message] The system which generated this result transmitted reference range: 23 - 38 Seconds. The reference range was not used to interpret this result as normal/abnormal. MERLINE (test code = MERLINE) The [facility] patient population mean normal value for aPTT is 30 seconds. Lab Interpretation (test code = 34292-4) Normal [facility] CenterPOCT [id number] 09:53:00* Test Item Value Reference Range Interpretation Comme [facility] POCT PREG (test code = 1605) negative On board controls acceptable with C Line (test code = 3574) present POCT PREG LOT # (test code = 3575) [id number] POCT PREG TEST DATE ( test code = 3576) 01/21/2021 Lab Interpretation (test cod e = 77963-9) Normal [facility] CenterProthrombin Time (PT) / [id number] 09:51:00 * Test Item Value Reference Range Interpretation Comme [facility] PROTIME PATIENT (test code = 5964-2) See_Comment [Automated [employer]it[employer] ge] The system which generated this result transmitted reference range: 12.0 - 14.7 Seconds. The reference range was not used to interpret this result as normal/abnormal. INR (test code = 6301-6) Normal INR <1.1; Warfarin Therapeutic range 2.0 to 3.0 or 2.5 to 3.5, depending upon the indications. Lab Interpretation (test code = 92936-3) Normal [facility] CenterCBC with [id number] 09:26:00* Test Item Value Reference Range Interpretation Comme [facility] WBC (test code = 6690-2) See_Comment [Automated messa ge] The system which generated this result transmitted reference range: 4.30 - 11.10 10*3/?L. The reference range was not used to interpret this result as normal/abnormal. RBC (test code = 789-8) See_Comment [Automated messa ge] The system which generated this result transmitted reference range: 3.93 - 5.25 10*6/?L. The reference range was not used to interpret this result as normal/abnormal. HGB (test code = 718-7) 14.5 g/dL 11.6-15 HCT (test code = 4544-3) 42.4 % 35.7-45.2 MCV (test code = 787-2) 90.0 fL 80.6-95.5 MCH (test code = 785-6) 30.8 pg 25.9-32.8 MCHC (test code = 786-4) 34.2 g/dL 31.6-35.1 RDW-SD (test code = 67951-5) 40.3 fL 39-49.9 RDW-CV (test code = 788-0) 12.0 % 12-15.5 PLT (test code = 777-3) See_Comment H [Automated [employer] ge] The system which generated this result transmitted reference range: 166 - 358 10*3/?L. The reference range was not used to interpret this result as normal/abnormal. MPV (test code = 93860-1) 9.6 fL 9.5-12.9 NRBC/100 WBC (test code = 1568676323) See_Comment [Automated [employer] ssage] The system which generated this result transmitted reference range: 0.0 - 10.0 /100 WBCs. The reference range was not used to interpret this result as normal/abnormal. NRBC x10^3 (test code = 0133516008) <0.01 See_Comment [Automated [employer] ge] The system which generated this result transmitted reference range: 10*3/?L. The reference range was not used to interpret this result as normal/abnormal. GRAN MAT (NEUT) % (test code = 770-8) 45.5 % IMM GRAN % (test code = 2319712245) 0.50 % LYMPH % (test code = 736-9) 45.1 % MONO % (test code = 5905-5) 5.9 % EOS % (test code = 713-8) 2.5 % BASO % (test code = 706-2) 0.5 % GRAN MAT x10^3(ANC) (test code = 4870118138) 4.97 10*3/uL 1.88-7.09 IMM GRAN x10^3 (test code = 3037324807) 0.05 10*3/uL 0-0.06 LYMPH x10^3 (test code = 731-0) 4.93 10*3/uL 1.32-3.29 H MONO x10^3 (test code = 742-7) 0.64 10*3/uL 0.33-0.92 EOS x10^3 (test code = 711-2) 0.27 10*3/uL 0.03-0.39 BASO x10^3 (test code = 704-7) 0.06 10*3/uL 0.01-0.07 Lab Interpretation (test code = 60177-5) Abnormal [facility] CenterTroponin [id number] 09:15:00* Test Item Value Reference Range Interpretation Comme nts TROPONIN I (test code = 9729701319) <0.012 See_Comment [Automated message] The system which generated this result transmitted reference range: <=0.034 ng/mL. The reference range was not used to interpret this result as normal/abnormal. MERLINE (test code = MERLINE) Equal or Less than 0.034 ng/ml---Normal ?Note: Cardiac troponin begins to rise 3-4 hours after the onset of ischemia. Repeat in 4-6 hours if the sample was drawn within 3-4 hours of the onset of the symptom and found normal. Between 0.035 and 0.120 ng/mL--- Borderline. Questionable myocardial injury or necrosis ? ?Note: Serial measurement may be necessary to confirm or exclude the diagnosis of myocardial injury or necrosis; Clinical correlation (symptoms, EKGs, imaging studies, and others) required; Repeat in 4-6 hours if clinically indicated. ? Equal or Higher than 0.121 ng/mL---Abnormal. Myocardial Injury or Necrosis Likely ? Biotin has been reported to cause a negative bias, interpret results relative to patient's use of biotin. ? Lab Interpretation (test code = 72145-4) Normal [facility] CenterN-TERMINAL [id number] 09:12:00* Test Item Value Reference Range Interpretation Comme nts NT-proBNP (test code = 0083970571) 100 pg/mL See_Comment [Automated message] The system which generated this result transmitted reference range: <=125. The reference range was not used to interpret this result as normal/abnormal. MERLINE (test code = MERLINE) Biotin has been reported to cause a negative bias, interpret results relative to patient's use of biotin. Lab Interpretation (test code = 10463-9) Normal [facility] CenterETHANOL2020-11-11 09:06:00* Test Item Value Reference Range Interpretation Comme nts ALCOHOL (test code = 7934650823) <10 mg/dL MERLINE (test code = MERLINE) <10 [id number] Toxic>100 Depression of COMPETITIVE INTELLIGENCE ANALYST>400 Fatalities Reported [facility] CenterMAGNESIUM2020-11-11 09:04:00* Test Item Value Reference Range Interpretation Comme nts MAGNESIUM (test code = 4075722817) 1.8 mg/dL 1.7-2.4 Lab Interpretation (test cod e = 58655-1) Normal [facility] CenterBasi Metabolic Panel (NA, K, CL, CO2, GLUCOSE, BUN, CREATININE, CA)2020-04-03 09:03:00* Test Item Value Reference Range Interpretation Comme nts NA (test code = 9274016472) 135 mmol/L 135-145 K (test code = 7346887965) 3.8 mmol/L 3.5-5 CL (test code = 3545925489) 103 mmol/L 98-108 CO2 TOTAL (test code = 2410228820) 23 mmol/L 23-31 AGAP (test code = 6244626801) 2-16 BUN (test code = 0849307576) 18 mg/dL 7-23 GLUCOSE (test code = 7155928405) 119 mg/dL 70-110 H CREATININE (test code = 2122696720) 0.56 mg/dL 0.5-1.04 CALCIUM (test code = 2208941222) 9.2 mg/dL 8.6-10.6 eGFR Calculation (Non-) (test code = 6607973615) mL/min/1.73m2 eGFR Calculation () (test code = 5178155559) mL/min/1.73m2 MERLINE (test code = MERLINE) Association of Glomerular Filtration Rate (GFR) and Staging of Kidney Disease* + --+ --+ ------+| GFR (mL/min/1.73 m2) ?| With Kidney Damage ?| ?Without Kidney Damage+ --------+ --------+ +| ?>90 ?| ?Stage one ?| ? Normal ?+ ---+ ---+ -------+| ?60-89 ?| ?Stage two ?| ? Decreased GFR ? + --+ --+ ------+| ?30-59 ?| ?Stage three ?| ? Stage three ? + --+ --+ ------+| ?15-29 ?| ?Stage four ? | ? Stage four ?+ ---+ ---+ -------+| ?<15 (or dialysis) ? ?| ?Stage five ? | ? Stage five ?+ ---+ ---+ -------+ *Each stage assumes the associated GFR level has been in effect for at least three months. ?Stages 1 to 5, with or without kidney disease, indicate chronic kidney disease. Notes: Determination of stages one and two (with eGFR >59mL/min/1.73 m2) requires estimation of kidney damage for at least three months as defined by structural or functional abnormalities of the kidney, manifested by either:Pathological abnormalities or Markers of kidney damage (including abnormalities in the composition of the blood or urine or abnormalities in imaging tests). Lab Interpretation (test code = 82315-4) Abnormal [facility] CenterHepatic Function Panel (ALB, T.PRO, BILI T, BU/BC, ALT, AST, ALK PHOS)2020-04-03 09:03:00* Test Item Value Reference Range Interpretation Comme nts TOTAL BILI (test code = 8401274901) 0.4 mg/dL 0.1-1.1 BILI UNCON (test code = 7307644612) 0.3 mg/dL 0.1-1.1 BILI CONJ (test code = 2519554987) 0.0 mg/dL 0-0.3 T PROTEIN (test code = 9129446451) 7.5 g/dL 6.3-8.2 ALBUMIN (test code = 8388999424) 4.2 g/dL 3.5-5 ALK PHOS (test code = 8692416783) 104 U/L 34-122 ALTv (test code = 1742-6) 22 U/L 5-35 AST(SGOT) (test code = 0853426444) 28 U/L 13-40 Lab Interpretation (test cod e = 43238-7) [facility] [id number] 07:49:00* Test Item Value Reference Range Interpretation Comme nts SARS-CoV-2 (test code = 81197-5) Not Detected Not Detected MERLINE (test code = MERLINE) ID NOW COVID-19 As say is an isothermal nucleic acid amplification test intended for the qualitative detection of nucleic acid from SARS-CoV-2 viral RNA in nasopharyngeal (EQUIPMENT MAINTENANCE TECHNICIAN) specimens. It is used under Emergency Use Authorization (EUA) by FDA. The limit of detection (LOD) of the assay is 125 Genome Equivalents/mL. A positive result is indicative of the presence of SARS-CoV-2 RNA. ?Clinical correlation with patient history and other diagnostic information is necessary to determine patient infection status. A negative (Not Detected) result does not preclude SARS-CoV-2 infection. Clinical correlation with patient history and other diagnostic information should be used in patient management decisions. Invalid: Please collect a new specimen for repeat patient testing if clinically indicated. Lab Interpretation (test code = 31699-4) Normal [facility]"
--- NOTE | 2023-08-05 02:41 | ER ---
Nurse's Notes [facility] Name: Jacquelyn Deluca Age: 48 yrs Sex: Female : 1975 Arrival Date: 08/05/2023 Time: 02:03 Bed DX3 Private MD: Diagnosis: Insomnia, unspecified;Anxiety disorder, persistent insomnia, acute anxiety attack Presentation: 08/04 02:12 Chief complaint: Patient states: I can't sleep because I am anxious. I have sertraline jb4 that I take before bed and it does not help. Coronavirus screen: At this time, the client does not indicate any symptoms associated with coronavirus-19. Ebola Screen: No symptoms or risks identified at this time. Initial Sepsis Screen: Does the patient meet any 2 criteria? No. Patient's initial sepsis screen is negative. Does the patient have a suspected source of infection? No. Patient's initial sepsis screen is negative. Risk Assessment: Do you want to hurt yourself or someone else? Patient reports no desire to harm self or others. Onset of symptoms was August 05, 2023. Transition of care: patient was not received from another setting of care. 02:12 Method Of Arrival: Ambulatory jb4 02:12 Acuity: MYLA 4 jb4 Triage Assessment: 02:16 General: Appears in no apparent distress. comfortable, Behavior is calm, cooperative. jb4 Pain: Denies pain. EENT: No signs and/or symptoms were reported regarding the EENT system. Neuro: Level of Consciousness is awake, alert, obeys commands, Oriented to person, place, time, situation. Cardiovascular: Patient's skin is warm and dry. Respiratory: Airway is patent Respiratory effort is even, unlabored, Respiratory pattern is regular, symmetrical. GI: No signs and/or symptoms were reported involving the gastrointestinal system. : No signs and/or symptoms were reported regarding the genitourinary system. Derm: Skin is intact, Skin is pink, warm \T\ dry. Musculoskeletal: Circulation, motion, and sensation intact. Range of motion: intact in all extremities. 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 - Social history:: Smoking status: Patient denies any tobacco usage or history of. - Family history:: not pertinent. Screenin:18 [facility] ED Fall Risk Assessment (Adult) History of falling in the last 3 months, jb4 including since admission No falls in past 3 months (0 pts) Confusion or Disorientation No (0 pts) Intoxicated or Sedated No (0 pts) Impaired Gait No (0 pts) Mobility Assist Device Used No (0 pt) Altered Elimination No (0 pt) Score/Fall Risk Level 0 - 2 = Low Risk Oriented to surroundings, Maintained a safe environment. Abuse screen: Denies threats or abuse. Nutritional screening: No deficits noted. Tuberculosis screening: No symptoms or risk factors identified. Assessment: 02:48 Reassessment: see triage note. jb4 Vital Signs: 02:12 BP 134 / 94; Pulse 71; Resp 16; Temp 97.7; Pulse Ox 100% on R/A; Weight 107.5 kg (R); jb4 Height 5 ft. 4 in. (R); Pain 0/10; 02:12 Body Mass Index 40.68 (107.50 kg, 162.56 cm) jb4 02:12 Pain Scale: Adult jb4 ED Course: 02:07 Patient arrived in ED. jj6 02:16 Triage completed. jb4 02:16 Arm band placed on right wrist. jb4 02:18 Patient taken to a hallway bed, ambulatory. jb4 02:36 Lefty Blakely MD is Attending Physician. sp4 02:40 Matty Kearns DO is Referral Physician. sp4 02:48 Patient has correct armband on for positive identification. Provided Education on: jb4 prescription medication. 02:48 No provider procedures requiring assistance completed. Patient did not have IV access jb4 during this emergency room visit. Administered Medications: 02:40 Drug: Diazepam PO 5 mg PO once Route: PO; jb4 02:49 Follow up: Response: Medication administered at discharge. jb4 Medication: 02:48 VIS not applicable for this client. jb4 Outcome: 02:41 Discharge ordered by . sp4 02:48 Discharged to home ambulatory, with family, jb4 02:48 Condition: stable 02:48 Discharge instructions given to patient, Instructed on discharge instructions, follow up and referral plans. medication usage, Demonstrated understanding of instructions, follow-up care, medications, Prescriptions given X 1, 02:49 Patient left the ED. jb4 Signatures: Saul Crystal RN RN jb4 Aggie Hdz jj6 Lefty Blakely MD MD sp4
--- NOTE | 2023-08-05 02:41 | EDPHYS ---
Physician Documentation [facility] Name: Jacquelyn eDluca Age: 48 yrs Sex: Female : 1975 Arrival Date: 08/05/2023 Time: 02:03 Bed DX3 Private MD: ED Physician Lefty Blakely HPI: 08/04 02:37 This 48 yrs old Female presents to ER via Ambulatory with complaints of sp4 Anxiety, High Blood Pressure. 02:37 48-year-old female presents with acute anxiety associated with persistent insomnia. sp4 Patient takes lisinopril HCTZ combo tablet for hypertension and also sertraline for anxiety. Patient has been suffering from insomnia for a long time. . 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 - Social history:: Smoking status: Patient denies any tobacco usage or history of. - Family history:: not pertinent. ROS: 02:37 Constitutional: Negative for fever, chills, and weight loss, positive for anxiety and sp4 insomnia 02:37 All other systems are negative, Exam: 02:37 Constitutional: This is a well developed, well nourished patient who is awake, alert, sp4 and in no acute distress. Head/Face: Normocephalic, atraumatic. Eyes: Pupils equal round and reactive to light, extra-ocular motions intact. Lids and lashes normal. Conjunctiva and sclera are not injected. Cornea within normal limits. Periorbital areas with no swelling, redness, or edema. ENT: Nares patent. No nasal discharge, no septal abnormalities noted. Tympanic membranes are normal and external auditory canals are clear. Oropharynx with no redness, swelling, or masses, exudates, or evidence of obstruction, uvula midline. Mucous membranes moist. Neck: Trachea midline, no thyromegaly or masses palpated, and no cervical lymphadenopathy. Supple, full range of motion without nuchal rigidity, or vertebral point tenderness. Chest/axilla: Normal chest wall appearance and motion. Nontender with no deformity. No lesions are appreciated. Cardiovascular: Regular rate and rhythm with a normal S1 and S2. No gallops, murmurs, or rubs. Normal PMI, no JVD. No pulse deficits. Respiratory: Lungs have equal breath sounds bilaterally, clear to auscultation and percussion. No rales, rhonchi or wheezes noted. No increased work of breathing, no retractions or nasal flaring. Abdomen/GI: Soft, with normal bowel sounds. No distension or tympany. No guarding or rebound. No evidence of tenderness throughout. Back: No spinal tenderness. No costovertebral tenderness. Skin: Warm, dry with normal turgor. Normal color with no rashes, no lesions, and no evidence of cellulitis. MS/ Extremity: Pulses equal, no cyanosis. Neurovascular intact. Full, normal range of motion. Neuro: Awake and alert, GCS 15, oriented to person, place, time, and situation. Cranial nerves II-XII grossly intact. Motor strength 5/5 in all extremities. Sensory grossly intact. Psych: Awake, alert, with orientation to person, place and time. Behavior, mood, and affect are within normal limits Vital Signs: 02:12 BP 134 / 94; Pulse 71; Resp 16; Temp 97.7; Pulse Ox 100% on R/A; Weight 107.5 kg (R); jb4 Height 5 ft. 4 in. (R); Pain 0/10; 02:12 Body Mass Index 40.68 (107.50 kg, 162.56 cm) jb4 02:12 Pain Scale: Adult jb4 MDM: 02:36 Patient medically screened. sp4 02:37 Differential diagnosis: Malignant HTN, Anxiety attack, insomnia. Data reviewed: vital sp4 signs, nurses notes, old medical records. ED course: Patient will be given Valium p.o. in ER and will be prescribed trial of trazodone 50 mg before bedtime for insomnia. Will refer to primary care physician Dr. Kearns . Administered Medications: 02:40 Drug: Diazepam PO 5 mg PO once Route: PO; jb4 02:49 Follow up: Response: Medication administered at discharge. jb4 Disposition Summary: 08/05/23 02:41 Discharge Ordered Notes: Location: Home sp4 Problem: new sp4 Symptoms: have improved sp4 Condition: Stable sp4 Diagnosis - Insomnia, unspecified sp4 - Anxiety disorder, persistent insomnia, acute anxiety attack sp4 Followup: sp4 - With: Matty Kearns DO - When: 7 - 10 days - Reason: Recheck today's complaints Discharge Instructions: - Discharge Summary Sheet sp4 - Insomnia sp4 Prescriptions: - trazodone 50 mg Oral tablet - take 1 tablet ORAL route At bedtime 30 min before bedtime for insomnia; 30 sp4 tablet; Refills: 0, Product Selection Permitted Signatures: Saul Crystal RN RN jb4 Lefty Blakely MD MD sp4
[2023-08-05 02:56] VITALS: BP 134/94; TEMP 97.7; O2SAT 100
== END ==
LOC: ER 02:03
DX: G47.00 Insomnia, unspecified (principal); F41.0 Panic disorder [episodic paroxysmal anxiety]; I10 Essential (primary) hypertension
CPT/HCPCS: 99283